=== PATIENT | male | born 1965 | race Caucasian/White ===

== ENCOUNTER 2019-03-02 16:07 | Emergency (ER) | payer BC ==
--- NOTE | 2019-03-02 16:55 | EDM.PDOC ---
ED HPI GENERAL MEDICAL PROBLEM - General Chief Complaint: Cardiovascular Problem Stated Complaint: HEADACHE/DIZZINESS Time Seen by Provider: 03/02/19 16:38 Source of Information: Reports: Patient, RN Notes Reviewed - History of Present Illness INITIAL COMMENTS - FREE TEXT/NARRATIVE: 54-year-old male has been brought in by his for evaluation of headach, not feeling well in general, and dental pain. He had onset of headache about 2 days ago, He has hx of chronic dental problems, his L lower molars are broke off at the gum line. He has been having quite severe pain L post jaw for the last 2 days. No fever or chills. His Baldwin is generalized, throbbing. No nausea, vomiting or visual problems. He also gets R leg pain with ambulation, than gets better with rest. No chest pain or difficulty breathing. He has a strong smoking hx. He is diabetic on insulin and metformin. Left Throat Pain Score (Numeric/FACES): 10 - Related Data Allergies Allergy/AdvReac Type Severity Reaction Status Date / Time No Known Allergies Allergy Verified 03/02/19 16:27 Home Meds: Home Meds Clopidogrel [Plavix] 75 mg PO 05/28/18 [History] Insulin. 05/28/18 [History] Statin. 05/28/18 [History] metFORMIN HCl [Metformin HCl] 500 mg PO 05/28/18 [History] Past Medical History Cardiovascular History: Reports: High Cholesterol, Stents Genitourinary History: Reports: Diabetic Nephropathy Endocrine/Metabolic History: Reports: Diabetes, Type I - Past Surgical History Other HEENT Surgeries/Procedures: shots in his eyes ED ROS GENERAL - Review of Systems Review Of Systems: See Below Constitutional: Denies: Fever, Chills, Diaphoresis HEENT: Reports: Dental Pain. Denies: Ear Pain, Eye Pain, Throat Pain, Vertigo, Vision Change Respiratory: Denies: Shortness of Breath, Cough Cardiovascular: Denies: Chest Pain GI/Abdominal: Denies: Abdominal Pain, Nausea, Vomiting Musculoskeletal: Reports: Leg Pain (with exertion) Skin: Denies: Rash, Erythema Neurological: Reports: Dizziness, Headache. Denies: Numbness, Tingling, Trouble Speaking, Weakness ED EXAM, GENERAL - Physical Exam Exam: See Below General Appearance: Alert, Anxious, Mild Distress Eye Exam: Bilateral Eye: PERRL Ears: Normal External Exam Nose: Normal Inspection Throat/Mouth: Other (most of his teeth are gone, L lower molars are all broken off at the gum line, no visible swelling, no drainage) Head: Facial Tenderness (L post jaw). No: Facial Swelling Neck: Supple, Full Range of Motion, Other (no swelling). No: Lymphadenopathy (L ), Lymphadenopathy (R) Cardiovascular: Regular Rate, Rhythm GI/Abdominal: Soft, Non-Tender Extremities: Normal Inspection, Normal Range of Motion. No: Pedal Edema, Leg Pain, Increased Warmth, Pallor, Redness Neurological: Alert, Oriented, No Motor/Sensory Deficits, Other (finger to nose testing normal) Skin Exam: Warm, Dry, Normal Color EKG INTERPRETATION EKG Date: 03/02/19 Rhythm: NSR [place]: Normal P-Wave: Present QRS: Other (There are Q waves leads III) ST-T: Normal Course - Vital Signs Last Recorded V/S: Last Vital Signs Temp 97.0 F 03/02/19 16:24 Pulse 85 03/02/19 16:24 Resp 18 03/02/19 16:24 BP 222/95 H 03/02/19 16:24 Pulse Ox 92 L 03/02/19 16:24 - Orders/Labs/Meds Orders: Active Orders 24 hr Category Date Time Status EKG 12 Lead [EKG Documentation Completion] [RC] STAT Care 03/02/19 16:56 Active Peripheral IV Care [RC] . DIRECTED Care 03/02/19 16:57 Active Peripheral IV Insertion Adult [OM.PC] Stat Oth 03/02/19 16:56 Ordered Labs: Laboratory Tests 03/02/19 03/02/19 Range/Units 16:43 17:02 WBC 13.15 H (4.23-9.07) K/mm3 RBC 5.38 (4.63-6.08) M/mm3 Hgb 16.2 D (13.7-17.5) gm/dl Hct 46.8 (40.1-51.0) % MCV 87.0 (79.0-92.2) fl MCH 30.1 (25.7-32.2) pg MCHC 34.6 (32.2-35.5) g/dl RDW Std Deviation 40.9 (35.1-43.9) fL Plt Count 275 (163-337) K/mm3 MPV 9.6 (9.4-12.3) fl Neut % (Auto) 66.3 (34.0-67.9) % Lymph % (Auto) 19.6 L (21.8-53.1) % [place] % (Auto) 11.1 (5.3-12.2) % Eos % (Auto) 2.4 (0.8-7.0) Baso % (Auto) 0.3 (0.1-1.2) % Neut # (Auto) 8.72 H (1.78-5.38) K/mm3 Lymph # (Auto) 2.58 (1.32-3.57) K/mm3 [place] # (Auto) 1.46 H (0.30-0.82) K/mm3 Eos # (Auto) 0.31 (0.04-0.54) K/mm3 Baso # (Auto) 0.04 (0.01-0.08) K/mm3 Sodium 137 (136-145) mEq/L Potassium 4.1 (3.5-5.1) mEq/L Chloride 103 (98-107) mEq/L Carbon Dioxide 22 (21-32) mEq/L Anion Gap 16.1 H (5-15) BUN 26 H (7-18) mg/dL Creatinine 1.2 (0.7-1.3) mg/dL Est Cr Clr Drug Dosing 53.72 mL/min Estimated GFR (MDRD) > 60 (>60) mL/min BUN/Creatinine Ratio 21.7 H (14-18) Glucose 243 H (74-106) mg/dL Calcium 9.5 (8.5-10.1) mg/dL Total Bilirubin 0.3 (0.2-1.0) mg/dL AST 16 (15-37) U/L ALT 31 (16-63) U/L Alkaline Phosphatase 101 (46-116) U/L Troponin I < 0.017 (0.00-0.056) ng/mL Total Protein 7.9 (6.4-8.2) g/dl Albumin 4.2 (3.4-5.0) g/dl Globulin 3.7 gm/dL Albumin/Globulin Ratio 1.1 (1-2) Ethyl Alcohol 0.00 (0.00) gm% Meds: Medications Discontinued Medications Generic Name Dose Route Start Last Admin Trade Name Philippeq PRN Reason Stop Dose Admin Amoxicillin 1,000 mg 03/02/19 19:30 03/02/19 19:44 Amoxil PO 03/02/19 19:31 1,000 mg ONETIME ONE Administration Hydromorphone HCl 0.25 mg 03/02/19 16:58 03/02/19 17:11 Dilaudid IVPUSH 03/02/19 16:59 0.25 mg ONETIME ONE Administration Hydromorphone HCl 0.5 mg 03/02/19 18:35 03/02/19 18:39 Dilaudid IVPUSH 03/02/19 18:36 0.5 mg ONETIME ONE Administration Labetalol HCl 20 mg 03/02/19 16:57 03/02/19 17:11 Normodyne IVPUSH 03/02/19 16:58 20 mg ONETIME ONE Administration Protocol Labetalol HCl 20 mg 03/02/19 18:35 03/02/19 18:39 Normodyne IVPUSH 03/02/19 18:36 20 mg ONETIME ONE Administration Protocol Lorazepam 0.25 mg 03/02/19 16:58 03/02/19 17:11 Ativan IVPUSH 03/02/19 16:59 0.25 mg ONETIME ONE Administration Sodium Chloride 10 ml 03/02/19 16:56 03/02/19 17:02 Saline Flush FLUSH 10 ml ASDIRECTED PRN Administration Keep Vein Open - Re-Assessments/Exams Free Text/Narrative Re-Assessment/Exam: 03/03/19 11:15 BP very elevated on arrival, and follow up reading as well. Did give labetalol 20 mg IV, and also low dose dilaudid and ativan IV. That did bring the BP down to less than 200 systolic and he did get some relief of his Baldwin, also better relaxation. Head CT was neg for any acute findings. Labs also did come back relatively normal, creat. 1.2, trop nl. EKG also no acute changes. We did give further dilaudid IV for dental pain and Baldwin and one further dose labetalol IV. I did offer to start him on oral med. for Htn. He and his want to wait. His states he has never had high BP like this before. They agree to get a BP unit from a family member, get 2 or 3 readings per day at home and follow up clinic urgently. He was given amoxacillin 1000 mg IV. I have scheduled him for out patient MRI of head, MRA of head and neck for further eval. of neuro status. He will return to ED if symptoms worsening in any way. Departure - Departure Time of Disposition: 19:38 Disposition: Home, Self-Care 01 Condition: Fair Clinical Impression: Pain, dental, Dizziness Headache Qualifiers: Headache type: unspecified Headache chronicity pattern: acute headache Intractability: not intractable Qualified Code(s): R51 - Headache Hypertension Qualifiers: Hypertension type: unspecified Qualified Code(s): I10 - Essential (primary) hypertension Instructions: General Headache Without Cause, Hypertension, [id number] Referrals: Graciela Cortez MD [Primary Care Provider] - Forms: ED Department Discharge Additional Instructions: Rest, drink plenty of water to maintain hydration, borrow your family's blood pressure cuff and check blood pressure 2-3 times daily, keep a record for Dr. Cortez. Order for MRI of your head and MRA of your neck has been sent to radiology. They will call you tomorrow morning to give you a time for that. Amoxicillin 1000 mg twice daily for 1 week. See dentist as soon as possible. Follow up with Dr. Cortez at the clinic in 1-2 days for recheck, call for appointment tomorrow morning. Return to ED as needed if symptoms worsening in any way. - My Orders Last 24 Hours: My Active Orders 03/02/19 16:56 EKG 12 Lead [EKG Documentation Completion] [RC] STAT Peripheral IV Insertion Adult [OM.PC] Stat 03/02/19 16:57 Peripheral IV Care [RC] . DIRECTED - Assessment/Plan Last 24 Hours: My Active Orders 03/02/19 16:56 EKG 12 Lead [EKG Documentation Completion] [RC] STAT Peripheral IV Insertion Adult [OM.PC] Stat 03/02/19 16:57 Peripheral IV Care [RC] . DIRECTED
[2019-03-02] MEDS ORDERED: Sodium Chloride 0.9% 10 ML Syringe FLUSH PRN (16:56)
[2019-03-02] MEDS ORDERED: Labetalol 100 MG/20 ML MDV IVPUSH ONE ×2 (16:57→18:35)
[2019-03-02] MEDS ORDERED: LORazepam 2 MG/ML SDV IVPUSH ONE (16:58)
[2019-03-02] MEDS ORDERED: HYDROmorphone 0.5 MG/0.5 ML Syringe IVPUSH ONE ×2 (16:58→18:35)
--- NOTE | 2019-03-02 18:03 | CT ---
Head CT Technique: Multiple axial sections through the brain were obtained. Intravenous contrast was not utilized. Comparison: No previous intracranial imaging is available. Findings: Ventricles along with basal cisterns and sulci over the convexities are slightly prominent. No abnormal parenchymal densities are seen. No evidence of intracranial hemorrhage. No midline shift or mass effect is seen. Bone window settings were reviewed which shows no acute calvarial abnormality. Visualized paranasal sinuses and mastoid sinuses are clear. Impression: 1. Nothing acute is identified on noncontrast head CT study. Please correlate if patient's symptoms warrant further evaluation by MRI. Diagnostic code #1
[2019-03-02] MEDS ORDERED: Amoxicillin 500 MG Cap PO ONE (19:30)
== END 2019-03-02 20:00 | disposition home or self-care (01) ==
LOC: JD.ED 16:07
DX: R51 Headache (principal); K08.89 Other specified disorders of teeth and supporting structures; R42 Dizziness and giddiness; I10 Essential (primary) hypertension; E10.21 Type 1 diabetes mellitus with diabetic nephropathy; Z79.4 Long term (current) use of insulin
CPT/HCPCS: 36415; 70450; 80053; 80320; 84484; 85025; 93005; 96374; 96375; 96376; 99284; A9270; J1170; J2060; J3490; G0480

== ENCOUNTER 2019-03-04 17:05 | Emergency (ER) | payer BC ==
--- NOTE | 2019-03-04 17:50 | EDM.PDOC ---
ED HPI GENERAL MEDICAL PROBLEM - General Chief Complaint: Cardiovascular Problem Stated Complaint: SENT BY [facility] BLOOD CLOT IN LUNG Time Seen by Provider: 03/04/19 17:22 Source of Information: Reports: Patient, Family () History Limitations: Reports: No Limitations - History of Present Illness INITIAL COMMENTS - FREE TEXT/NARRATIVE: Mr. Kitchen is a very pleasant 54-year-old gentleman with a past history significant for type 2 diabetes mellitus, with peripheral vascular disease, status post a single stent to one of the arteries in his right lower extremity in 2018. He states that he has continued to have right lower extremity claudication symptoms for most of this year, and also reports 2 days of dyspnea on exertion. He states that he saw his PCP earlier today. A CBC, CMP, D-dimer, hemoglobin A1c, lipid panel, urinalysis, and chest x-ray were performed. The patient was subsequently instructed to come here, because his D-dimer was found to be mildly elevated at 0.52 (the upper limit of normal is 0.50). The remainder of his labs and his chest x-ray were reportedly unremarkable, with the exception that his blood glucose was 361, and his hemoglobin A1c 10%. The patient states that he was instructed to come here to get a CT angiogram of his chest to rule out a PE, given his elevated D-dimer. The patient's PCP is Dr. Graciela Cortez. His Share[employer] Developer is in [place], [place]. - Related Data Allergies Allergy/AdvReac Type Severity Reaction Status Date / Time No Known Allergies Allergy Verified 03/02/19 16:27 Home Meds: Home Meds Aspirin [Children's Aspirin] 81 mg PO DAILY 03/04/19 [History] Dapagliflozin Propanediol [Farxiga] 5 mg PO DAILY 03/04/19 [History] Diclofenac Sodium [Voltaren] 75 mg PO BID 03/04/19 [History] Insulin Glarg,Human.Rec.Analog [Lantus] 24 unit INJECT BID 03/04/19 [History] Rosuvastatin [Crestor] 10 mg PO DAILY 03/04/19 [History] metFORMIN [Glucophage XR] 500 mg PO DAILY 03/04/19 [History] Past Medical History HEENT History: Reports: Impaired Vision (Diabetic retinopathy) Cardiovascular History: Reports: High Cholesterol, PVD Neurological History: Reports: Neuropathy, Diabetic Endocrine/Metabolic History: Reports: Diabetes, Type II - Past Surgical History HEENT Surgical History: Reports: Tonsillectomy Cardiovascular Surgical History: Reports: Vascular Surgery (1 stent RLE 2018, [facility]) Musculoskeletal Surgical History: Reports: ORIF (left tibia), Other (See Below) (Left forearm bone spur removal) Social & Family History - Tobacco Use Smoking Status *Q: Former Smoker Years of Tobacco use: 35 Packs/Tins Daily: 1.5 Month/Year Tobacco Last Used: Quit 2014 - Caffeine Use Caffeine Use: Reports: Soda - Alcohol Use Alcohol Use History: Yes Alcohol Use Frequency: Rarely - Recreational Drug Use Recreational Drug Use: No - Living Situation & Occupation Living situation: Reports: , with Spouse 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 ED EXAM, GENERAL - Physical Exam Exam: See Below Exam Limited By: No Limitations General Appearance: Alert, WD/WN, Anxious Eye Exam: Bilateral Eye: EOMI, Normal Inspection Ears: Normal External Exam, Hearing Grossly Normal Nose: Normal Inspection Throat/Mouth: Normal Inspection, Normal Lips, Normal Voice, No Airway Compromise Head: Atraumatic, Normocephalic Neck: Normal Inspection, Full Range of Motion Respiratory/Chest: No Respiratory Distress, Lungs Clear, Normal Breath Sounds, No Accessory Muscle Use. No: Decreased Breath Sounds, Crackles, Rhonchi, Wheezing, Stridor, Prolonged Expiration Cardiovascular: Normal Peripheral Pulses, Regular Rate, Rhythm, No Gallop, No JVD, No Murmur, No Rub Peripheral Pulses: 4+: Radial (L), Radial (R) GI/Abdominal: Normal Bowel Sounds, Soft, Non-Tender, No Organomegaly, No Distention, No Abnormal Bruit, No Mass (Male) Exam: Deferred Rectal (Males) Exam: Deferred Back Exam: Normal Inspection, Full Range of Motion, NT Extremities: Normal Inspection, Normal Range of Motion, No Pedal Edema, Normal Capillary Refill Neurological: Alert, Oriented, Normal Cognition, No Motor/Sensory Deficits Psychiatric: Normal Affect Skin Exam: Warm, Dry, Intact, Normal Color, No Rash Course - Vital Signs Last Recorded V/S: Last Vital Signs Temp 36.6 C 03/04/19 17:12 Pulse 74 03/04/19 17:12 Resp 24 H 09/18/19 17:12 BP 177/95 H 03/04/19 17:12 Pulse Ox 100 03/04/19 17:12 - Orders/Labs/Meds Labs: Laboratory Tests 03/04/19 Range/Units 18:20 Puncture Site Rt radial ABG pH 7.45 (7.35-7.45) ABG pCO2 32.4 L (35.0-45.0) mmHg ABG pO2 57.0 L (80.0-100.0) mmHg ABG HCO3 22.1 (22.0-26.0) meq/L ABG O2 Saturation 90.1 L (96.0-97.0) % ABG Base Excess -0.6 (-2-2.0) Narendra Test Positive A-a Gradient 53 mmHg O2 Delivery Device Room air FiO2 21.00 (21.00-100.00) % - Re-Assessments/Exams Free Text/Narrative Re-Assessment/Exam: 03/04/19 17:47 As per the HPI, the patient has been experiencing dyspnea on exertion for the past 2 days. He workup by his PCP thus far is unremarkable, with the exception of his D-dimer being slightly elevated at 0.52, which is not consistent with a PE. We note that his oxygen saturation here in the ED is 100%, suggestive of hyperventilation. I have ordered an ABG to see if in fact he is hyperventilating , and when I have that result, I will call his PCP to see how strongly she feels about us acquiring a CT angiogram of his chest. 03/04/19 18:35 The patient's ABG represents an acute (uncompensated) primary respiratory alkalosis. The extent may be greater than represented, as this may be a mixed venous sample, given the underrepresented oxygen saturation. 03/04/19 18:[address] Cortez at 18:44. She stated that she was unaware that a D-dimer of 0.52 would not be consistent with a pulmonary embolus. We discussed the possibility of the patient having underlying DKA, however, his ABG represents a pure respiratory alkalosis with no metabolic acidosis. Further , his CMP from the clinic did not show metabolic acidosis, therefore the patient is not in DKA. Once discussed, Dr. Cortez did not feel strongly that the patient required a CT angiogram of the chest to rule out a PE. We discussed the possibility that the patient's dyspnea and hyperventilation could be due to anxiety. 03/04/19 19:03 The ABG results, and my conversation with Dr. Cortez, discussed with the patient and his . The patient feels frustrated, because, he states, this is his third ED visit, and he does not feel like he has an answer to why he continues to have a variety of symptoms. He states that he is not angry at anyone, just frustrated. He is concerned that his symptoms may somehow be related to his right lower extremity claudication, and he is certain that he may have COPD, since he has a history of smoking. I reassured him that his right lower extremity claudication is likely completely unrelated to his dyspnea on exertion, and while I cannot say whether or not he has underlying COPD, neither his symptoms, physical exam, nor his ABG are consistent with a COPD exacerbation. While a pulmonary embolus is highly unlikely, there may be utility in performing a CT of the chest with IV contrast (not a CT angiogram of the chest) to assess his anatomy. I offered to perform that here today, but the patient would prefer to go home. That study is still possible as an outpatient. I will have the patient follow-up with Dr. Cortez. Departure - Departure Time of Disposition: 19:08 Disposition: Home, Self-Care 01 Condition: Good Clinical Impression: Hyperventilation, Dyspnea on exertion, Claudication of right lower extremity Instructions: Shortness of Breath, Adult, [id number], Intermittent Claudication, Hyperventilation Referrals: Graciela Cortez MD [Primary Care Provider] - Forms: ED Department Discharge Additional Instructions: You were seen in the emergency room after a D-dimer (a potential measure of blood clot), obtained from the clinic, returned mildly elevated at 0.52. This is not consistent with a pulmonary embolus (blood clot in your lungs). Workup in the ER included an ABG, which demonstrated that you are hyperventilating. Hyperventilation is usually due to anxiety. Your case was discussed with your PCP, Dr. Cortez, and after discussion, she agreed that a CT angiogram of your chest to evaluate for a pulmonary embolus is not indicated. The exact cause of your shortness of breath is not clear, but may be due to anxiety, or, possibly an anatomic abnormality. We recommend that you follow-up with Dr. Cortez to discuss further options, such as treatment for anxiety, pulmonary function tests, or, potentially, a CT of your chest with IV contrast, a slightly different test than a CT angiogram of your chest. If any other problems, please do not hesitate to return to the ER.
== END 2019-03-04 19:25 | disposition home or self-care (01) ==
LOC: JD.ED 17:05
DX: I73.9 Peripheral vascular disease, unspecified (principal); R06.4 Hyperventilation; E11.40 Type 2 diabetes mellitus with diabetic neuropathy, unspecified; Z79.4 Long term (current) use of insulin; Z79.82 Long term (current) use of aspirin; Z79.899 Other long term (current) drug therapy; Z98.890 Other specified postprocedural states; Z95.5 Presence of coronary angioplasty implant and graft; Z87.891 Personal history of nicotine dependence
CPT/HCPCS: 36600; 82803; 99283; 99284

== ENCOUNTER 2020-10-08 12:13 | Emergency (ER) | payer BC ==
--- NOTE | 2020-10-08 13:23 | EDM.PDOC ---
ED HPI GENERAL MEDICAL PROBLEM - General Chief Complaint: Respiratory Problem Stated Complaint: COVID SYMPTOMS Time Seen by Provider: 10/08/20 12:30 Source of Information: Reports: Patient History Limitations: Reports: No Limitations - History of Present Illness INITIAL COMMENTS - FREE TEXT/NARRATIVE: 55-year-old male presents to the emergency department with complaints of Covid symptoms. He states he developed upper respiratory symptoms with a headache and sinus congestion about 10 days ago. However he states after about 4 days his symptoms all resolved. He states that yesterday both him and his developed upper respiratory symptoms, cough, chest congestion, headache and body aches. He denies any loss of taste or smell, he denies any nausea, vomiting, diarrhea or loss of appetite. Denies any sore throat. However he states that today his chest congestion has worsened and he feels more dyspneic and has developed more persistent cough that is nonproductive. Denies fever. He reports to me his was seen in the emergency department yesterday and diagnosed with Covid and was admitted to the hospital. He carries a history of bypass x2 with stent placement and he is an insulin-dependent diabetic. Treatments BUTCHER FISH: Reports: Other (see below) Other Treatments BUTCHER FISH: tylenol Headache Pain Score (Numeric/FACES): 6 - Related Data Allergies Allergy/AdvReac Type Severity Reaction Status Date / Time No Known Allergies Allergy Verified 04/29/19 16:48 Home Meds: Home Meds Dapagliflozin Propanediol [Farxiga] 5 mg PO DAILY 03/04/19 [History] Insulin Glarg,Human.Rec.Analog [Lantus] 24 unit INJECT BID 03/04/19 [History] Rosuvastatin [Crestor] 10 mg PO DAILY 03/04/19 [History] metFORMIN [Glucophage XR] 500 mg PO DAILY 03/04/19 [History] Multivitamin [Daily Multiple Vitamin] 1 tab PO DAILY 04/29/19 [History] Pantoprazole Sodium [Protonix] 40 mg PO DAILY #30 tablet. 04/30/19 [Rx] Past Medical History HEENT History: Reports: Impaired Vision Other HEENT History: wears eyeglasses. Top teeth pulled out. Cardiovascular History: Reports: High Cholesterol, PVD Other Cardiovascular History: stent to right leg Respiratory History: Reports: Pneumonia, Recurrent Genitourinary History: Reports: Diabetic Nephropathy Musculoskeletal History: Reports: Fracture Neurological History: Reports: Neuropathy, Diabetic Endocrine/Metabolic History: Reports: Diabetes, Type II - Infectious Disease History Infectious Disease History: Reports: Chicken Pox - Past Surgical History HEENT Surgical History: Reports: Tonsillectomy Other HEENT Surgeries/Procedures: shots in his eyes Cardiovascular Surgical History: Reports: Vascular Surgery Musculoskeletal Surgical History: Reports: ORIF, Other (See Below) Other Musculoskeletal Surgeries/Procedures:: jonatan to L) leg (femur) Social & Family History - Family History Family Medical History: No Pertinent Family History - Tobacco Use Tobacco Use Status *Q: Never Tobacco User - Caffeine Use Caffeine Use: Reports: Soda - Recreational Drug Use Recreational Drug Use: No - Living Situation & Occupation Living situation: Reports: , with Spouse 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 Denies: Diaphoresis, Decreased Appetite HEENT: Reports: No Symptoms. Denies: Sinus Problem, Throat Pain Respiratory: Reports: Shortness of Breath, Cough. Denies: Sputum Cardiovascular: Reports: Dyspnea on Exertion. Denies: Chest Pain, Edema, Lightheadedness, Orthopnea, Palpitations Endocrine: Reports: No Symptoms GI/Abdominal: Reports: No Symptoms. Denies: Abdominal Pain, Constipation, Diarrhea, Nausea, Vomiting : Reports: No Symptoms Musculoskeletal: Reports: Other (generalized body aches) Skin: Reports: No Symptoms Neurological: Reports: Headache Psychiatric: Reports: No Symptoms Hematologic/Lymphatic: Reports: No Symptoms Immunologic: Reports: No Symptoms ED EXAM, GENERAL - Physical Exam Exam: See Below Exam Limited By: No Limitations General Appearance: Alert, WD/WN, No Apparent Distress Ears: Normal External Exam, Hearing Grossly Normal Nose: Normal Inspection Throat/Mouth: Normal Inspection, Normal Lips, Normal Voice, No Airway Compromise Head: Atraumatic, Normocephalic Neck: Normal Inspection, Supple Respiratory/Chest: No Respiratory Distress, Normal Breath Sounds, No Accessory Muscle Use, Chest Non-Tender. No: Lungs Clear (faint exp wheeze noted posteriorly) Cardiovascular: Normal Peripheral Pulses, Regular Rate, Rhythm, No Edema, No Murmur Peripheral Pulses: 2+: Radial (L), Radial (R) GI/Abdominal: Normal Bowel Sounds, Soft, Non-Tender, No Distention (Male) Exam: Deferred Rectal (Males) Exam: Deferred Back Exam: Normal Inspection, Full Range of Motion Extremities: Normal Inspection, Normal Range of Motion, Non-Tender, No Pedal Edema, Normal Capillary Refill Neurological: Alert, Oriented, Normal Cognition Psychiatric: Normal Affect, Normal Mood Skin Exam: Warm, Dry, Intact, Normal Color, No Rash Lymphatic: No Adenopathy #1 Interpretation EKG Date: 10/08/20 Time: 13:23 Rhythm: NSR Rate (Beats/Min): 78 [place]: Normal P-Wave: Present QRS: Normal ST-T: Normal QT: Normal EKG Interpretation Comments: Per Dr. Waldrop interpretation: normal sinus rhythm-normal QRS; no ST or T changes Course - Vital Signs Text/Narrative:: 55-year-old male whose developed upper respiratory symptoms and headache and body aches chest congestion and cough starting yesterday. He states his was seen and treated in the emergency department for Covid symptoms and what is admitted. He states he has noticed more progressive shortness of breath and a more persistent cough since yesterday when his symptoms started. He states he still does have his taste and smell and denies any nausea, vomiting, diarrhea. States he has had the chills and a headache denies any sore throat. It is highly likely that the patient also does have Covid however I have ordered labs and a chest x-ray. He may likely be a candidate for on a clonal antibody treatment due to his history of insulin-dependent diabetes and past cardiac stenting. Last Recorded V/S: Last Vital Signs Temp 101.3 F H 10/08/20 16:14 Pulse 86 10/08/20 16:14 Resp 16 10/08/20 16:14 BP 182/83 H 10/08/20 16:14 Pulse Ox 94 L 10/08/20 16:14 - Orders/Labs/Meds Orders: Active Orders 24 hr Category Date Time Status EKG Documentation Completion [RC] STAT Care 10/08/20 13:10 Active Vital Signs [RC] Q15M Care 10/08/20 14:20 Active EPINEPHrine [Adrenalin] Med 10/08/20 14:19 Active 0.3 mg IM ONETIME PRN Famotidine [Pepcid] Med 10/08/20 14:19 Active 20 mg IVPUSH ONETIME PRN Sodium Chloride 0.9% [Saline Flush] Med 10/08/20 14:30 Active 30 ml FLUSH ASDIRECTED diphenhydrAMINE [Benadryl] Med 10/08/20 14:19 Active 50 mg IVPUSH ONETIME PRN methylPREDNISolone Sod Succ [Solu-MEDROL] Med 10/08/20 14:19 Active 125 mg IVPUSH ONETIME PRN Isolation [COMM] Stat Oth 10/08/20 13:05 Ordered Medication Orders Diphenhydramine HCl (Diphenhydramine 50 Mg/Ml Sdv) 50 mg IVPUSH ONETIME PRN PRN Reason: hypersensitivity reaction Epinephrine HCl (Epinephrine 1 Mg/Ml Sdv) 0.3 mg IM ONETIME PRN PRN Reason: hypersensitivity reaction Famotidine (Famotidine 20 Mg/2 Ml Sdv) 20 mg IVPUSH ONETIME PRN PRN Reason: hypersensitivity reaction Methylprednisolone Sodium Succinate (Methylprednisolone Sodium Succinate 125 Mg/2 Ml Sdv) 125 mg IVPUSH ONETIME PRN PRN Reason: hypersensitivity reaction Sodium Chloride (Sodium Chloride 0.9% 10 Ml Syringe) 30 ml FLUSH ASDIRECTED [facility] Labs: Laboratory Tests 10/08/20 10/08/20 10/08/20 Range/Units 13:10 13:10 13:10 WBC (4.23-9.07) K/mm3 RBC (4.63-6.08) M/mm3 Hgb (13.7-17.5) gm/dl Hct (40.1-51.0) % MCV (79.0-92.2) fl MCH (25.7-32.2) pg MCHC (32.2-35.5) g/dl RDW Std Deviation (35.1-43.9) fL Plt Count (163-337) K/mm3 MPV (9.4-12.3) fl Neut % (Auto) (34.0-67.9) % Lymph % (Auto) (21.8-53.1) % [place] % (Auto) (5.3-12.2) % Eos % (Auto) (0.8-7.0) Baso % (Auto) (0.1-1.2) % Neut # (Auto) (1.78-5.38) K/mm3 Lymph # (Auto) (1.32-3.57) K/mm3 [place] # (Auto) (0.30-0.82) K/mm3 Eos # (Auto) (0.04-0.54) K/mm3 Baso # (Auto) (0.01-0.08) K/mm3 Manual Slide Review PT (9.7-12.0) SECONDS INR APTT 25.7 (21.7-31.4) SECONDS D-Dimer, Quantitative 0.28 (0.19-0.50) mg/L Sodium (136-145) mEq/L Potassium (3.5-5.1) mEq/L Chloride (98-107) mEq/L Carbon Dioxide (21-32) mEq/L Anion Gap (5-15) BUN (7-18) mg/dL Creatinine (0.7-1.3) mg/dL Est Cr Clr Drug Dosing mL/min Estimated GFR (MDRD) (>60) mL/min BUN/Creatinine Ratio (14-18) Glucose (74-106) mg/dL Lactic Acid (0.4-2.0) mmol/L Calcium (8.5-10.1) mg/dL Ferritin 600 H (26-388) ng/ml Total Bilirubin (0.2-1.0) mg/dL AST (15-37) U/L ALT (16-63) U/L Alkaline Phosphatase (46-116) U/L Lactate Dehydrogenase (85-227) U/L C-Reactive Protein (<1.0) mg/dL Total Protein (6.4-8.2) g/dl Albumin (3.4-5.0) g/dl Globulin gm/dL Albumin/Globulin Ratio (1-2) Influenza Type A RNA (NEGATIVE) Influenza Type B RNA (NEGATIVE) SARS-CoV-2 RNA (ANTOINE) (NEGATIVE) 10/08/20 10/08/20 10/08/20 Range/Units 13:10 13:10 13:10 WBC (4.23-9.07) K/mm3 RBC (4.63-6.08) M/mm3 Hgb (13.7-17.5) gm/dl Hct (40.1-51.0) % MCV (79.0-92.2) fl MCH (25.7-32.2) pg MCHC (32.2-35.5) g/dl RDW Std Deviation (35.1-43.9) fL Plt Count (163-337) K/mm3 MPV (9.4-12.3) fl Neut % (Auto) (34.0-67.9) % Lymph % (Auto) (21.8-53.1) % [place] % (Auto) (5.3-12.2) % Eos % (Auto) (0.8-7.0) Baso % (Auto) (0.1-1.2) % Neut # (Auto) (1.78-5.38) K/mm3 Lymph # (Auto) (1.32-3.57) K/mm3 [place] # (Auto) (0.30-0.82) K/mm3 Eos # (Auto) (0.04-0.54) K/mm3 Baso # (Auto) (0.01-0.08) K/mm3 Manual Slide Review PT (9.7-12.0) SECONDS INR APTT (21.7-31.4) SECONDS D-Dimer, Quantitative (0.19-0.50) mg/L Sodium 136 (136-145) mEq/L Potassium 4.3 (3.5-5.1) mEq/L Chloride 99 (98-107) mEq/L Carbon Dioxide 28 (21-32) mEq/L Anion Gap 13.3 (5-15) BUN 14 (7-18) mg/dL Creatinine 1.1 (0.7-1.3) mg/dL Est Cr Clr Drug Dosing 57.91 mL/min Estimated GFR (MDRD) > 60 (>60) mL/min BUN/Creatinine Ratio 12.7 L (14-18) Glucose 345 H (74-106) mg/dL Lactic Acid 1.2 (0.4-2.0) mmol/L Calcium 9.2 (8.5-10.1) mg/dL Ferritin (26-388) ng/ml Total Bilirubin 0.4 (0.2-1.0) mg/dL AST 25 (15-37) U/L ALT 41 (16-63) U/L Alkaline Phosphatase 97 (46-116) U/L Lactate Dehydrogenase 162 (85-227) U/L C-Reactive Protein <0.2 (<1.0) mg/dL Total Protein 7.0 (6.4-8.2) g/dl Albumin 3.5 (3.4-5.0) g/dl Globulin 3.5 gm/dL Albumin/Globulin Ratio 1.0 (1-2) Influenza Type A RNA (NEGATIVE) Influenza Type B RNA (NEGATIVE) SARS-CoV-2 RNA (ANTOINE) (NEGATIVE) 10/08/20 10/08/20 10/08/20 Range/Units 13:10 13:10 13:10 WBC 5.11 (4.23-9.07) K/mm3 RBC 4.94 (4.63-6.08) M/mm3 Hgb 15.0 D (13.7-17.5) gm/dl Hct 44.5 (40.1-51.0) % MCV 90.1 (79.0-92.2) fl MCH 30.4 (25.7-32.2) pg MCHC 33.7 (32.2-35.5) g/dl RDW Std Deviation 41.1 (35.1-43.9) fL Plt Count 185 (163-337) K/mm3 MPV 10.0 (9.4-12.3) fl Neut % (Auto) 52.0 (34.0-67.9) % Lymph % (Auto) 25.2 (21.8-53.1) % [place] % (Auto) 20.4 H (5.3-12.2) % Eos % (Auto) 1.6 (0.8-7.0) Baso % (Auto) 0.6 (0.1-1.2) % Neut # (Auto) 2.66 (1.78-5.38) K/mm3 Lymph # (Auto) 1.29 L (1.32-3.57) K/mm3 [place] # (Auto) 1.04 H (0.30-0.82) K/mm3 Eos # (Auto) 0.08 (0.04-0.54) K/mm3 Baso # (Auto) 0.03 (0.01-0.08) K/mm3 Manual Slide Review Abnormal smear PT 10.2 (9.7-12.0) SECONDS INR 0.95 APTT (21.7-31.4) SECONDS D-Dimer, Quantitative (0.19-0.50) mg/L Sodium (136-145) mEq/L Potassium (3.5-5.1) mEq/L Chloride (98-107) mEq/L Carbon Dioxide (21-32) mEq/L Anion Gap (5-15) BUN (7-18) mg/dL Creatinine (0.7-1.3) mg/dL Est Cr Clr Drug Dosing mL/min Estimated GFR (MDRD) (>60) mL/min BUN/Creatinine Ratio (14-18) Glucose (74-106) mg/dL Lactic Acid (0.4-2.0) mmol/L Calcium (8.5-10.1) mg/dL Ferritin (26-388) ng/ml Total Bilirubin (0.2-1.0) mg/dL AST (15-37) U/L ALT (16-63) U/L Alkaline Phosphatase (46-116) U/L Lactate Dehydrogenase (85-227) U/L C-Reactive Protein (<1.0) mg/dL Total Protein (6.4-8.2) g/dl Albumin (3.4-5.0) g/dl Globulin gm/dL Albumin/Globulin Ratio (1-2) Influenza Type A RNA Negative (NEGATIVE) Influenza Type B RNA Negative (NEGATIVE) SARS-CoV-2 RNA (ANTOINE) Positive H (NEGATIVE) Meds: Medications Generic Name Dose Route Start Last Admin Trade Name Freq PRN Reason Stop Dose Admin Diphenhydramine HCl 50 mg 10/08/20 14:19 Diphenhydramine 50 Mg/Ml Sdv IVPUSH ONETIME PRN hypersensitivity reaction Epinephrine HCl 0.3 mg 10/08/20 14:19 Epinephrine 1 Mg/Ml Sdv IM ONETIME PRN hypersensitivity reaction Famotidine 20 mg 10/08/20 14:19 Famotidine 20 Mg/2 Ml Sdv IVPUSH ONETIME PRN hypersensitivity reaction Methylprednisolone Sodium Succinate 125 mg 10/08/20 14:19 Methylprednisolone Sodium Succinate 125 Mg/2 Ml Sdv IVPUSH ONETIME PRN hypersensitivity reaction Sodium Chloride 30 ml 10/08/20 14:30 Sodium Chloride 0.9% 10 Ml Syringe FLUSH ASDIRECTED ANTWON Discontinued Medications Generic Name Dose Route Start Last Admin Trade Name Freq PRN Reason Stop Dose Admin Bamlanivimab 700 mg/ 310 mls @ 310 mls/hr 10/08/20 16:30 10/08/20 16:11 Etesevimab 1,400 mg/ Sodium IV 10/08/20 17:29 310 mls/hr Chloride ONETIME ONE Administration Insulin Human Lispro 4 unit 10/08/20 14:32 10/08/20 15:14 Insulin Lispro 100 Unit/Ml SUBCUT 10/08/20 14:33 4 unit ONETIME ONE Administration Protocol - Re-Assessments/Exams Free Text/Narrative Re-Assessment/Exam: 10/08/20 14:18 Radiologist impression portable view of the chest: 1. Nothing acute is seen on portable chest x-ray. 10/08/20 14:29 Hematology reveals a WBC of 5.11, hemoglobin 15.0, hematocrit 44.5, pro time 10.2, INR 0.95, PTT 25.7, D-dimer 0.28, chemistry reveals a sodium of 136, potassium of 4.3, carbon dioxide 28, anion gap 13.3, BUN 14, creatinine 1.1, GFR greater than 60, glucose 345, lactic acid 1.2, ferritin 600, total bilirubin 0.4, AST 25, ALT 41, LDH 162, C-reactive protein less than 0.2 Patient is negative for influenza type a and B, patient is positive for Covid. I discussed lab results with the patient and the fact that he is a candidate for monoclonal antibody treatment. He does carry a history of insulin-dependent diabetes, he is 55 years old and has cardiovascular disease. He states that his blood sugar is likely elevated because he has not taken his insulin for 2 days. We will treat this with Humalog sliding scale insulin and get the patient a lunch tray as he states he has not eaten much today. I spoke with the patient to provide information about bamlanivimab treatment for himself. I offered the patient caregiver MILA Johnsonlanivimad fax sheet to read and review. I stated the drug has been approved by an emergency use authorization process and has not fully been FDA reviewed or approved. The patient meets the EUA requirements. I discussed there are other potential treatment options that are currently not FDA approved to treat Covid. I offered opportunity to ask questions and all questions were answered. The patient voiced understanding and agreed to proceed with the treatment for himself. 10/08/20 18:36 Patient has received Bamlanivimab treatment and tolerated it well. He has been observed for an hour in the emergency department and he will be discharged home. Departure - Departure Time of Disposition: 18:37 Disposition: Home, Self-Care 01 Condition: Good Clinical Impression: COVID-19 - Discharge Information Instructions: What You Should Know About COVID-19 to Protect Yourself and Others - [facility] Referrals: Vinicio Barahona MD [Primary Care Provider] - Forms: ED Department Discharge Additional Instructions: You were seen in the emergency department today with complaints of symptoms of Covid. Labs and an x-ray were completed and you do indeed have Covid however the inflammatory markers were not elevated thus far. You qualified for monoclonal antibody treatment and did receive this. As discussed, if this is effective, it should lessen your symptoms and severity of Covid. Go home and rest. Drink plenty of fluids and eat a nutritious diet. May take Tylenol 650 mg every 4 hours or ibuprofen 600mg every 8 hours for discomfort. You still need to quarantine per previous recommendations. Should your conditions worsen or change, do not hesitate returning to the emergency department. Sepsis Event Note (ED) - Evaluation Sepsis Screening Result: No Definite Risk - Focused Exam Vital Signs: Vital Signs Temp Pulse Resp BP Pulse Ox 10/08/20 16:14 101.3 F H 86 16 182/83 H 94 L 10/08/20 12:40 99.9 F 78 20 162/81 H 97 - My Orders Last 24 Hours: My Active Orders 10/08/20 13:05 Isolation [COMM] Stat 10/08/20 13:10 EKG Documentation Completion [RC] STAT 10/08/20 14:19 EPINEPHrine [Adrenalin] 0.3 mg IM ONETIME PRN Famotidine [Pepcid] 20 mg IVPUSH ONETIME PRN diphenhydrAMINE [Benadryl] 50 mg IVPUSH ONETIME PRN methylPREDNISolone Sod Succ [Solu-MEDROL] 125 mg IVPUSH ONETIME PRN 10/08/20 14:20 Vital Signs [RC] Q15M 10/08/20 14:30 Sodium Chloride 0.9% [Saline Flush] 30 ml FLUSH ASDIRECTED - Assessment/Plan Last 24 Hours: My Active Orders 10/08/20 13:05 Isolation [COMM] Stat 10/08/20 13:10 EKG Documentation Completion [RC] STAT 10/08/20 14:19 EPINEPHrine [Adrenalin] 0.3 mg IM ONETIME PRN Famotidine [Pepcid] 20 mg IVPUSH ONETIME PRN diphenhydrAMINE [Benadryl] 50 mg IVPUSH ONETIME PRN methylPREDNISolone Sod Succ [Solu-MEDROL] 125 mg IVPUSH ONETIME PRN 10/08/20 14:20 Vital Signs [RC] Q15M 10/08/20 14:30 Sodium Chloride 0.9% [Saline Flush] 30 ml FLUSH ASDIRECTED
--- NOTE | 2020-10-08 13:55 | CR ---
Chest: Portable view of the chest was obtained. Comparison: Prior chest x-ray of 05/01/19 and 04/29/19. Heart size and mediastinum are within normal limits for portable technique. Tortuous thoracic aorta is noted. Lungs are clear with no acute parenchymal change. Bony structures show slight scoliosis within the spine. Impression: 1. Nothing acute is seen on portable chest x-ray. Diagnostic code #2
[2020-10-08 14:01] LABS: CORONAVIRUS COVID-19 NAA POSITIVE (NEGATIVE)
[2020-10-08] MEDS ORDERED: EPINEPHrine 1 MG/ML SDV IM PRN (14:19)
[2020-10-08] MEDS ORDERED: diphenhydrAMINE 50 MG/ML SDV IVPUSH PRN (14:19)
[2020-10-08] MEDS ORDERED: methylPREDNISolone Sodium Succinate 125 MG/2 ML SDV IVPUSH PRN (14:19)
[2020-10-08] MEDS ORDERED: Famotidine 20 MG/2 ML SDV IVPUSH PRN (14:19)
[2020-10-08] MEDS ORDERED: Sodium Chloride 0.9% 10 ML Syringe FLUSH SCH (14:30)
== END 2020-10-08 18:57 | disposition home or self-care (01) ==
LOC: JD.ED 12:13
DX: U07.1 COVID-19 (principal); E11.40 Type 2 diabetes mellitus with diabetic neuropathy, unspecified; E78.00 Pure hypercholesterolemia, unspecified; Z79.4 Long term (current) use of insulin; Z79.899 Other long term (current) drug therapy
CPT/HCPCS: 0240U; 36415; 71045; 80053; 82728; 83605; 83615; 85025; 85379; 85610; 85730; 86140; 93005; 99284; J1815; J7050; M0245; Q0239; Q0245; 93010

== ENCOUNTER 2020-10-10 16:05 | Emergency (ER) | payer BC ==
--- NOTE | 2020-10-10 16:18 | EDM.PDOC ---
ED HPI GENERAL MEDICAL PROBLEM - General Chief Complaint: Respiratory Problem Stated Complaint: SOB/COVID+ Time Seen by Provider: 10/10/20 16:17 - History of Present Illness INITIAL COMMENTS - FREE TEXT/NARRATIVE: 55-year-old male returns the emergency room with worsening shortness of breath he is known Covid positive. Patient was seen here 2 days ago diagnosed with Covid because of his diabetes he received Bamlanivimab. The patient has tremendous stress his is in [place] with Covid now on a ventilator. And the patient is quite anxious at this time. The patient has a cough and this seems to make his chest discomfort worse. He has chest discomfort in both lower portions of the chest. It does hurt for him to take a deep breath. generalized Pain Score (Numeric/FACES): 10 - Related Data Allergies Allergy/AdvReac Type Severity Reaction Status Date / Time No Known Allergies Allergy Verified 10/10/20 16:21 Home Meds: Home Meds Dapagliflozin Propanediol [Farxiga] 5 mg PO DAILY 03/04/19 [History] Insulin Glarg,Human.Rec.Analog [Lantus] 24 unit INJECT BID 03/04/19 [History] Rosuvastatin [Crestor] 10 mg PO DAILY 03/04/19 [History] metFORMIN [Glucophage XR] 500 mg PO DAILY 03/04/19 [History] Multivitamin [Daily Multiple Vitamin] 1 tab PO DAILY 04/29/19 [History] Pantoprazole Sodium [Protonix] 40 mg PO DAILY #30 tablet. 04/30/19 [Rx] Acetaminophen/HYDROcodone [Brighton 325-5 MG] 1 tab PO Q6H PRN #20 tablet 10/10/20 [Rx] Past Medical History HEENT History: Reports: Impaired Vision Other HEENT History: wears eyeglasses. Top teeth pulled out. Cardiovascular History: Reports: High Cholesterol, PVD Other Cardiovascular History: stent to right leg Respiratory History: Reports: Pneumonia, Recurrent Genitourinary History: Reports: Diabetic Nephropathy Musculoskeletal History: Reports: Fracture Neurological History: Reports: Neuropathy, Diabetic Endocrine/Metabolic History: Reports: Diabetes, Type II - Infectious Disease History Infectious Disease History: Reports: Chicken Pox - Past Surgical History HEENT Surgical History: Reports: Tonsillectomy Other HEENT Surgeries/Procedures: shots in his eyes Cardiovascular Surgical History: Reports: Vascular Surgery Musculoskeletal Surgical History: Reports: ORIF, Other (See Below) Other Musculoskeletal Surgeries/Procedures:: jonatan to L) leg (femur) Social & Family History - Family History Family Medical History: No Pertinent Family History - Caffeine Use Caffeine Use: Reports: Soda - Living Situation & Occupation Living situation: Reports: , with Spouse 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 Denies: Sputum Cardiovascular: Reports: No Symptoms Endocrine: Reports: No Symptoms GI/Abdominal: Reports: No Symptoms : Reports: No Symptoms Musculoskeletal: Reports: No Symptoms Neurological: Reports: No Symptoms ED EXAM, GENERAL - Physical Exam Exam: See Below Exam Limited By: No Limitations General Appearance: Alert, Anxious Eye Exam: Bilateral Eye: Normal Inspection Ears: Normal External Exam, Normal Canal, Hearing Grossly Normal, Normal TMs Nose: Normal Inspection, Normal Mucosa, No Blood Throat/Mouth: Normal Inspection, Normal Lips, Normal Teeth, Normal Gums, Normal Oropharynx, Normal Voice, No Airway Compromise Head: Atraumatic, Normocephalic Neck: Normal Inspection, Supple, Non-Tender, Full Range of Motion. No: Lymphadenopathy (L), Lymphadenopathy (R) Respiratory/Chest: No Respiratory Distress, Lungs Clear, Normal Breath Sounds, Other (Has some chest wall discomfort with palpation on the lateral lower most chest avila bilaterally) Cardiovascular: Regular Rate, Rhythm, No Edema, No Murmur GI/Abdominal: Normal Bowel Sounds, Soft, Other (Epigastric discomfort mild with palpation no rigidity rebound or guarding) Back Exam: Normal Inspection. No: CVA Tenderness (L), CVA Tenderness (R) Extremities: Normal Inspection, Non-Tender, No Pedal Edema Neurological: Alert, Oriented, Normal Cognition #1 Interpretation EKG Date: 10/10/20 Rhythm: NSR [place]: Normal P-Wave: Present QRS: Other (Early transition) ST-T: Normal QT: Normal Comparison: No Change (No significant change from 2 days ago) EKG Interpretation Comments: Nondiagnostic EKG Course - Vital Signs Last Recorded V/S: Last Vital Signs Temp 36.9 C 10/10/20 16:20 Pulse 71 10/10/20 18:12 Resp 23 H 10/10/20 18:12 BP 128/81 10/10/20 18:12 Pulse Ox 98 10/10/20 18:12 - Orders/Labs/Meds Orders: Active Orders 24 hr Category Date Time Status Ang Chest [CT] Stat Exams 10/10/20 16:43 Stop Req EKG 12 Lead [EK] Stat Ther 10/10/20 17:02 Ordered Labs: Laboratory Tests 10/10/20 10/10/20 10/10/20 Range/Units 16:15 16:15 16:15 WBC 5.37 (4.23-9.07) K/mm3 RBC 5.34 (4.63-6.08) M/mm3 Hgb 16.1 (13.7-17.5) gm/dl Hct 46.3 (40.1-51.0) % MCV 86.7 D (79.0-92.2) fl MCH 30.1 (25.7-32.2) pg MCHC 34.8 (32.2-35.5) g/dl RDW Std Deviation 39.4 (35.1-43.9) fL Plt Count 174 (163-337) K/mm3 MPV 10.6 (9.4-12.3) fl Neut % (Auto) 43.4 (34.0-67.9) % Lymph % (Auto) 38.5 (21.8-53.1) % Cloud % (Auto) 14.9 H (5.3-12.2) % Eos % (Auto) 2.4 (0.8-7.0) Baso % (Auto) 0.6 (0.1-1.2) % Neut # (Auto) 2.33 (1.78-5.38) K/mm3 Lymph # (Auto) 2.07 (1.32-3.57) K/mm3 Cloud # (Auto) 0.80 (0.30-0.82) K/mm3 Eos # (Auto) 0.13 (0.04-0.54) K/mm3 Baso # (Auto) 0.03 (0.01-0.08) K/mm3 D-Dimer, Quantitative 0.36 (0.19-0.50) mg/L Sodium 131 L (136-145) mEq/L Potassium 4.3 (3.5-5.1) mEq/L Chloride 96 L (98-107) mEq/L Carbon Dioxide 23 (21-32) mEq/L Anion Gap 16.3 H (5-15) BUN 24 H (7-18) mg/dL Creatinine 1.2 (0.7-1.3) mg/dL Est Cr Clr Drug Dosing 64.26 mL/min Estimated GFR (MDRD) > 60 (>60) mL/min BUN/Creatinine Ratio 20.0 H (14-18) Glucose 362 H (74-106) mg/dL Calcium 9.7 (8.5-10.1) mg/dL Total Bilirubin 0.6 (0.2-1.0) mg/dL AST 23 (15-37) U/L ALT 35 (16-63) U/L Alkaline Phosphatase 97 (46-116) U/L Troponin I < 0.017 (0.00-0.056) ng/mL Total Protein 7.8 (6.4-8.2) g/dl Albumin 3.7 (3.4-5.0) g/dl Globulin 4.1 gm/dL Albumin/Globulin Ratio 0.9 L (1-2) Meds: Medications Discontinued Medications Generic Name Dose Route Start Last Admin Trade Name Mike PRN Reason Stop Dose Admin Morphine Sulfate 2 mg 10/10/20 16:49 10/10/20 17:01 Morphine 2 Mg/Ml Syringe IVPUSH 10/10/20 16:50 2 mg ONETIME ONE Administration Morphine Sulfate 2 mg 10/10/20 16:49 10/10/20 18:59 Morphine 2 Mg/Ml Syringe IVPUSH 10/10/20 16:50 2 mg ONETIME ONE Administration - Re-Assessments/Exams Free Text/Narrative Re-Assessment/Exam: 10/10/20 18:29 Resented to the emergency room initially he had no problems and room air and then as his anxiety and discomfort worsened he would have some problems. We got him to slow down his breathing and take deeper breaths and he did much better with this. But at times especially when he was ready to go to the sleep he would have some desaturations. With simple relaxation techniques patient's did better tachypnea and tachycardia resolved blood pressure improved. He was restarted on oxygen his pain was treated with 2 mg of morphine his anxiety ike nued to improve and he has done well has been on room air for quite a while now and is done quite well with this. I am concerned about him especially with his underlying diabetes however 2 days ago he received the bamlanivimab. He is doing well at this point I think he would do well with oral pain medication, and he would like to give this a try. Patient's chest x-ray today looks pretty good he may have some right-sided very subtle infiltrate starting to develop. Repeat D-dimer is still normal. Departure - Departure Time of Disposition: 18:38 Disposition: Home, Self-Care 01 Clinical Impression: COVID-19, Pneumonia due to COVID-19 virus - Discharge Information Prescriptions: Acetaminophen/HYDROcodone [B[place] 325-5 MG] 1 tab PO Q6H PRN #20 tablet PRN Reason: Pain Instructions: COVID-19 Referrals: Vinicio Barahona MD [Primary Care Provider] - Forms: ED Department Discharge Additional Instructions: Return to the emergency room with any questions problems or worsening symptoms. Do not hesitate to return here if you think you are having any worsening symptoms. Use the pain medication as needed. Take 1 every 6 hours as needed[address] Do not drive or return to work within 12 hours of using this medication. Spend as much time in the prone, on your belly, position as you can tolerate. Stay in home isolation for 7 days after your symptoms completely resolve and you are not taking any medication for the Covid symptoms. Sepsis Event Note (ED) - Focused Exam Vital Signs: Vital Signs Temp Pulse Resp BP Pulse Ox 10/10/20 18:12 71 23 H 128/81 98 10/10/20 16:20 36.9 C 73 40 H 212/79 H 100 - My Orders Last 24 Hours: My Active Orders 10/10/20 16:43 Ang Chest [CT] Stat 10/10/20 17:02 EKG 12 Lead [EK] Stat - Assessment/Plan Last 24 Hours: My Active Orders 10/10/20 16:43 Ang Chest [CT] Stat 10/10/20 17:02 EKG 12 Lead [EK] Stat
[2020-10-10] MEDS ORDERED: Morphine 2 MG/ML SYRINGE IVPUSH ONE ×2 (16:49)
== END 2020-10-10 19:00 | disposition home or self-care (01) ==
LOC: JD.ED 16:05
DX: U07.1 COVID-19 (principal); J12.82 Pneumonia due to coronavirus disease 2019; E11.40 Type 2 diabetes mellitus with diabetic neuropathy, unspecified; E78.00 Pure hypercholesterolemia, unspecified; Z79.4 Long term (current) use of insulin; Z79.899 Other long term (current) drug therapy
CPT/HCPCS: 36415; 80053; 84484; 85025; 85379; 93005; 96374; 96376; 99285; J2270; 93010; 99284

== ENCOUNTER 2021-02-09 17:35 | Emergency (ER) | payer BC ==
[2021-02-09] MEDS ORDERED: LORazepam 2 MG/ML SDV IVPUSH ONE (18:24)
--- NOTE | 2021-02-09 18:28 | EDM.PDOC ---
ED HPI GENERAL MEDICAL PROBLEM - General Chief Complaint: Neurological Problem Stated Complaint: [facility] Time Seen by Provider: 02/09/21 18:12 Source of Information: Reports: Patient, Family () History Limitations: Reports: No Limitations - History of Present Illness INITIAL COMMENTS - FREE TEXT/NARRATIVE: 55-year-old male presents to the ED per [facility] from his home here in [place]. 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 He was diagnosed with COVID-19 infection in September of this year. He presented with grand mal seizures on 2 or 3 occasions while in hospital. Apparently it took a period of time to identified the cause of his seizures and is unclear to me whether there was ever a definitive change identified on MRI of the brain. At any rate patient is followed by Dr. Conrad neurologist at [facility] in [place]. He was discharged on Keppra and has remained on 1500 mg twice daily since discharge from hospital and has had no further seizure activity. Of note he apparently was on Topamax or topiramate dosage unknown up until 2 weeks ago when he ran out of medication. There were no refills on the medication and they were not able to get it refilled per neurology services until review tomorrow in clinic. It is unclear if this was being used for a antiseizure medication but it is thought that this was the case according to the . Carlos Manuelight shortly after 1710 hrs. or thereabouts he developed recurrent seizure activity which was witnessed by his with recurrent blinking of his eyes and inability to respond to his 's verbal commands. She appreciated that his eyes were twitching repeatedly with the first seizure. This lasted approximately a minute to a minute and a half. Apparently had a short reprieve in between 3 separate seizures. During the second seizure he was up against the wall and apparently right leg gave out and caused him to slide down the wall to the floor. It is unclear if he was having any repetitive tonic-clonic movements of his right arm or leg at that time. The patient never lost consciousness. He never lost control of his bowel or bladder and he did not bite his tongue. In the ED, when I first seen him ,he was having recurrent blinking of his eyes with slight twitching of the right side of his face but no obvious tonic /clonic movement of his right arm or leg. He has not missed any doses of his medication and his make sure of this. No recent falls or injuries. Today when the seizure first came on he slid down a wall to the floor and did not land hard. In particular did not hit his head. He reports mild nausea without vomiting. He appreciates that he has right arm and right leg weakness at the time of presentation to the ED. He has a mild headache. Paramedics did not administer any medications but did start an IV. Of note the patient's med list indicates he takes lorazepam 0.5 mg every 6 hours as needed. It appears that he is still been using this medication without abrupt withdrawal that would precipitate benzodiazepine withdrawal. Onset: Today, Sudden Onset Date: 02/09/21 Onset Time: 17:10 Duration: Minutes:, Intermittent Location: Reports: Other (Recurrent blinking of his eyelids and slight twitching of the right side of his face and apparently recognized right arm and leg involvement with slight twitching at home with initial onset of seizure.) Quality: Reports: Other Severity: Mild Improves with: Reports: None Worsens with: Reports: None Context: Reports: Other (Spontaneous onset of seizure shortly after 5 PM ton ight.). Denies: Activity, Exercise, Lifting, Sick Contact, Trauma Associated Symptoms: Reports: Headaches, Malaise, Weakness. 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 04/30/19 [Rx] Albuterol Sulfate [Albuterol Sulfate HFA] 8.5 gm INH Q4H PRN 02/09/21 [History] Aspirin 81 mg PO DAILY 02/09/21 [History] Escitalopram [Lexapro] 10 mg PO DAILY 02/09/21 [History] Insulin Aspart [NovoLOG] 0 unit SQ WITHMEALSANDBED 02/09/21 [History] LORazepam [Ativan] 0.5 mg PO Q6H PRN 02/09/21 [History] levETIRAcetam [Keppra] 2,000 mg PO BID 02/09/21 [History] lisinopriL [Lisinopril] 5 mg PO DAILY 02/09/21 [History] Past Medical History HEENT History: Reports: Impaired Vision Other HEENT History: wears eyeglasses. Top teeth pulled out. 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 Has been on insulin for the last 21 years.) - Infectious Disease History Infectious Disease History: Reports: Chicken Pox Other Infectious Disease History: September 2019 - Past Surgical History HEENT Surgical History: Reports: Tonsillectomy Other HEENT Surgeries/Procedures: shots in his eyes Cardiovascular Surgical History: Reports: Vascular Surgery Musculoskeletal Surgical History: Reports: ORIF, Other (See Below) Other Musculoskeletal Surgeries/Procedures:: jonatan to L) leg (femur) Social & Family History - Family History Family Medical History: No Pertinent Family History - Tobacco Use Tobacco Use Status *Q: Never Tobacco User - Caffeine Use Caffeine Use: Reports: Soda - Recreational Drug Use Recreational Drug Use: No - Living Situation & Occupation Living situation: Reports: , with Spouse 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 Denies: Fever, Chills Respiratory: Reports: No Symptoms Cardiovascular: Denies: Chest Pain Endocrine: Reports: Fatigue, Other (Does have type 2 diabetes.) GI/Abdominal: Reports: Constipation (Occasional problems with constipation) : Reports: Frequency, Other (Nocturia x2) Musculoskeletal: Reports: Shoulder Pain, Back Pain Skin: Reports: No Symptoms Neurological: Reports: Headache (Headache today post seizure.), Seizure (Since diagnosis of meningoencephalitis in early December of this year felt to be post Covid related). Denies: Confusion, Dizziness Psychiatric: Reports: Anxiety Hematologic/Lymphatic: Reports: No Symptoms Immunologic: Reports: No Symptoms - Physical Exam Exam: See Below Exam Limited By: Other (Initial blood pressure was recorded at 225 110. It came down promptly to 165/88 and then subsequently to 148/80.) General Appearance: Alert, WD/WN, No Apparent Distress, Obese (Mild.), Other (Once I spoke to him after entering the room with his repetitive eye blinking the eye blinking went away and he could answer my questions appropriately. This suggested this may be pseudoseizure activity. Temperature is 36.9 with a heart rate of 90. Respiratory was 16 with O2 sats of 92 to 94% room) Eye Exam: Right Eye: Conjunctival Injection (Patient has a lateral subconjunctival hematoma adjacent to the cornea. This is from recent intraocular injections for diabetic retinopathy/macular degeneration), Bilateral Eye: Normal Fundi, Normal Inspection (No blepharal pallor or scleral icterus), PERRL (No gaze palsy. Pupils were equal and respond to light and accommodation) Ears: Normal TMs Throat/Mouth: Normal Inspection, Normal Lips, Normal Oropharynx, Other (No evidence of any tongue biting.) Head Exam: Atraumatic, Normocephalic, Other Neck: Normal Inspection, Supple (No outward signs of any head or facial trauma), Non-Tender, Full Range of Motion. No: Carotid Bruit, Lymphadenopathy (L), Lymphadenopathy (R) Respiratory/Chest: No Respiratory Distress, Lungs Clear, Normal Breath Sounds, No Accessory Muscle Use, Decreased Breath Sounds (Breath sounds are mildly diminished to the lower 20% lung liu bilaterally without adventitial sounds) Cardiovascular: Normal Peripheral Pulses, Regular Rate, Rhythm, No Edema, No Gallop, No Murmur, No Rub GI/Abdominal: Normal Bowel Sounds, Soft, Non-Tender, No Organomegaly, No Mass, Pelvis Stable, Other. No: Guarding, Rigid, Rebound (Mildly obese), Tender Neuro Exam (Abbreviated): Alert, Oriented, CN II-XII Intact, Normal Cognition, Sensory/Motor Deficit (Patient has weakness in his right lower extremity with difficulty lifting his leg off the gurney. I could lift it off the gurney and internally externally rotate his hip with no abnormalities identified. Right upper extremity had full range of motion.), Other (Negative Babinski sign). No: Normal Reflexes DTR: 0: Patella (R), 1+: Patella (L), Achilles (R), Achilles (L), 2+: Bicep (L), 3+: Bicep (R) Back Exam: Normal Inspection, Full Range of Motion, Other (Required assist to sit up on the gurney.). No: CVA Tenderness (L), CVA Tenderness (R) Extremities: Normal Inspection, Normal Range of Motion, Non-Tender, No Pedal Edema Psychiatric: Normal Affect, Normal Mood Skin Exam: Warm, Dry, Intact, Normal Color, No Rash Course - Vital Signs Last Recorded V/S: Last Vital Signs Temp 36.9 C 02/09/21 17:40 Pulse 92 02/09/21 18:15 Resp 32 H 02/09/21 18:15 BP 196/102 H 02/09/21 18:15 Pulse Ox 93 L 02/09/21 18:15 - Orders/Labs/Meds Labs: Laboratory Tests 02/09/21 02/09/21 02/09/21 Range/Units 18:21 18:21 18:21 WBC 8.04 (4.23-9.07) K/mm3 RBC 4.63 (4.63-6.08) M/mm3 Hgb 14.5 D (13.7-17.5) gm/dl Hct 42.7 (40.1-51.0) % MCV 92.2 D (79.0-92.2) fl MCH 31.3 (25.7-32.2) pg MCHC 34.0 (32.2-35.5) g/dl RDW Std Deviation 46.5 H (35.1-43.9) fL Plt Count 241 (163-337) K/mm3 MPV 9.7 (9.4-12.3) fl Neut % (Auto) 58.7 (34.0-67.9) % Lymph % (Auto) 26.0 (21.8-53.1) % [place] % (Auto) 8.7 (5.3-12.2) % Eos % (Auto) 5.7 (0.8-7.0) Baso % (Auto) 0.7 (0.1-1.2) % Neut # (Auto) 4.71 (1.78-5.38) K/mm3 Lymph # (Auto) 2.09 (1.32-3.57) K/mm3 [place] # (Auto) 0.70 (0.30-0.82) K/mm3 Eos # (Auto) 0.46 (0.04-0.54) K/mm3 Baso # (Auto) 0.06 (0.01-0.08) K/mm3 Sodium 141 D (136-145) mEq/L Potassium 4.1 (3.5-5.1) mEq/L Chloride 104 (98-107) mEq/L Carbon Dioxide 25 (21-32) mEq/L Anion Gap 16.1 H (5-15) BUN 22 H (7-18) mg/dL Creatinine 1.0 (0.7-1.3) mg/dL Est Cr Clr Drug Dosing 63.70 mL/min Estimated GFR (MDRD) > 60 (>60) mL/min BUN/Creatinine Ratio 22.0 H (14-18) Glucose 308 H (70-99) mg/dL Lactic Acid (0.4-2.0) mmol/L Calcium 9.1 (8.5-10.1) mg/dL Total Bilirubin 0.2 (0.2-1.0) mg/dL AST 18 (15-37) U/L ALT 35 (16-63) U/L Alkaline Phosphatase 103 (46-116) U/L C-Reactive Protein <0.2 (<1.0) mg/dL Total Protein 7.0 (6.4-8.2) g/dl Albumin 3.7 (3.4-5.0) g/dl Globulin 3.3 gm/dL Albumin/Globulin Ratio 1.1 (1-2) TSH 3rd Generation 2.000 (0.358-3.74) uIU/mL 02/09/21 Range/Units 18:44 WBC (4.23-9.07) K/mm3 RBC (4.63-6.08) M/mm3 Hgb (13.7-17.5) gm/dl Hct (40.1-51.0) % MCV (79.0-92.2) fl MCH (25.7-32.2) pg MCHC (32.2-35.5) g/dl RDW Std Deviation (35.1-43.9) fL Plt Count (163-337) K/mm3 MPV (9.4-12.3) fl Neut % (Auto) (34.0-67.9) % Lymph % (Auto) (21.8-53.1) % [place] % (Auto) (5.3-12.2) % Eos % (Auto) (0.8-7.0) Baso % (Auto) (0.1-1.2) % Neut # (Auto) (1.78-5.38) K/mm3 Lymph # (Auto) (1.32-3.57) K/mm3 [place] # (Auto) (0.30-0.82) K/mm3 Eos # (Auto) (0.04-0.54) K/mm3 Baso # (Auto) (0.01-0.08) K/mm3 Sodium (136-145) mEq/L Potassium (3.5-5.1) mEq/L Chloride (98-107) mEq/L Carbon Dioxide (21-32) mEq/L Anion Gap (5-15) BUN (7-18) mg/dL Creatinine (0.7-1.3) mg/dL Est Cr Clr Drug Dosing mL/min Estimated GFR (MDRD) (>60) mL/min BUN/Creatinine Ratio (14-18) Glucose (70-99) mg/dL Lactic Acid 3.2 H* (0.4-2.0) mmol/L Calcium (8.5-10.1) mg/dL Total Bilirubin (0.2-1.0) mg/dL AST (15-37) U/L ALT (16-63) U/L Alkaline Phosphatase (46-116) U/L C-Reactive Protein (<1.0) mg/dL Total Protein (6.4-8.2) g/dl Albumin (3.4-5.0) g/dl Globulin gm/dL Albumin/Globulin Ratio (1-2) TSH 3rd Generation (0.358-3.74) uIU/mL Meds: Medications Discontinued Medications Generic Name Dose Route Start Last Admin Trade Name Mike PRN Reason Stop Dose Admin Lorazepam 1 mg 02/09/21 18:24 02/09/21 18:58 Lorazepam 2 Mg/Ml Sdv IVPUSH 02/09/21 18:25 1 mg ONETIME ONE Administration - Radiology Interpretation Free Text/Narrative:: 55-year-old male presents to the ED per [facility] [facility] after apparently suffering 3 separate seizures a few minutes apart shortly after 1700 hrs. today. His provides most of his history. He had COVID-19 illness in early to mid September 2020. He did come into the ED and did receive monoclonal antibody therapy. However about a month later he started to decline and have worse problems which were felt to be related to COVID-19 illness. In early December he was admitted to [facility] in [place] due to grand mal seizure occurrences. 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 He has done well post discharge from the hospital and is maintained on Keppra 1500 mg twice daily and up until 2 weeks ago was also on Topamax dosage unknown daily. He does use lorazepam 0.5 mg once daily at bedtime to help sleep. He returned to work about 10 days ago and is finding it very stressful. He feels he is sleeping adequately but is quite fatigued. describes that initially at night he developed blinking of his eyes repeatedly and staring off into space and would not communicate verbally with her. She did not appreciate any tonic-clonic activity of any of his other extremities. This seizure lasted approximately 90 seconds. Within another minute or so he developed a second seizure with repetitive movement of his eyelids slight twitching of his right face and then his right leg seemed to give out and he slid down the wall to the floor. His did not apparently identify any obvious tonic-clonic movement of his right arm or leg. On examination here he had repetitive opening and closing of his eyes with repetitive blinking activity but as soon as I started to converse with him the blinking stopped suggesting pseudoseizure activity. However during the the rest of my examination he would had hyper active reflexes in his right arm and absent reflexes in his right leg and he was unable to raise his right leg off the gurney. His left side was normal. Babinski's were both downgoing. Plan patient will have IV normal saline 150 mils an hour. He is a type II diabetic controlled with insulin. Blood sugar be tested at the bedside. Routine labs ordered including a lactic acid. He will have CT of the head performed due to concern for possible focal seizure activity involving only the right side of his body. - Re-Assessments/Exams Free Text/Narrative Re-Assessment/Exam: 02/09/21 19:10: CT scan of the brain reveals the ventricles along with the basal cisterns and sulci over the convexities to be minimally prominent. No abnormal parenchymal densities are seen. No evidence of intracranial hemorrhage is seen. No midline shift or mass-effect is seen. Bone window settings were reviewed. Visualized mastoid sinuses and paranasal sinuses show nothing acute. No acute calvarial abnormality is seen. 02/09/21 19:21 White count is normal at 8.04. Hemoglobin is 14.5 with an with hematocrit of 42.7. Platelet count is 241,000 02/09/21 19:49 Chemistry is now available. Sodium is normal at 141 with a potassium of 4.1. Chloride is 104 with a bicarb of 25. Anion gap is 16.1. BUN was 22 with a creatinine of 1.0 and a GFR greater than 60. BUN/creatinine ratio is 22.0. Glucose was elevated at 308. Lactic acid was elevated at 3.2 compatible with having a recent seizure. Calcium is 9.1. Liver function is normal. C-reactive protein was less than 0.2 total protein 7.0 with an albumin fraction of 3.7. TSH is normal at 2.0. Patient has other labs listed in his [facility] medical chart which I reviewed and cortisol levels done recently were normal as well. 02/09/21 20:02 patient appears to have recovered substantially from his seizure. He is alert oriented answers all questions appropriately. He is now able to lift his right leg off the gurney fairly easily. This suggest that initial right arm and leg weakness was in fact due to focal seizure involving right hemiextremity. I am going to get him up walking in the hallway and see how he ambulates. 02/09/21 20:09 We got the patient up walking with the aid of a walker but he is still toe dragging and has weakness in his right ankle and foot. This is a marked improvement compared to my initial evaluation when he could not lift his leg off the gurney at all and could not resist forceful plantarflexion of his ankle. Plan will be to retest him in 30 minutes or so. 02/09/21 20:41 On retesting he was able to get up off the bed on his own volition which she struggled with initially. I walked him and he did much better in terms no more toe dragging on the right side. He could pivot and turn without issue. He will be discharged to home as they have an appointment with neurologist Dr. Conrad tomorrow morning at 1030 hrs. mild standard time. Departure - Departure Time of Disposition: 20:42 Disposition: Home, Self-Care 01 Condition: Fair Clinical Impression: Breakthrough seizure - Discharge Information *PRESCRIPTION DRUG MONITORING PROGRAM REVIEWED*: Not Applicable *COPY OF PRESCRIPTION DRUG MONITORING REPORT IN PATIENT JEISON: Not Applicable Instructions: Epilepsy, [id number] Referrals: Vinicio Barahona MD [Primary Care Provider] - Forms: ED Department Discharge Additional Instructions: Evaluation in the emergency room today in regards to breakthrough seizures that occurred shortly after 1700 hrs. today. 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 You suffered grand mal seizures at the time of admission to the hospital. You have been treated with Keppra 1500 mg twice daily as an outpatient as well as Topamax dosage unknown up until 2 weeks ago. You have continued the Keppra but have been unable to fill a dose of Topamax. In the emergency room you were having repetitive opening and closing of your eyes with slight twitching of your right hemiface at the time I seen you. You could speak and answer my questions normally. You identified that your right arm and leg were weak particularly the right leg. This persiste d for the next 3 hours and gradually improved function and strength suggesting that the right leg was affected more so by a seizure than your face or right arm. We call this being post ictal. CT of the brain done tonight did not reveal any abnormalities. Lab test revealed mild elevation of your lactic acid compatible with having had seizure activity. You were treated with Ativan 1 mg IV in the emergency department prior to going to the CT suite. No changes made to medications at this time as you are going to see your neurologist Dr. Conrad tomorrow and he will determine if further antiseizure medication is required or return to Topamax daily. Take your dosage of Keppra 1500 mg tonight as per usual. Sepsis Event Note (ED) - Evaluation Sepsis Screening Result: No Definite Risk - Focused Exam Vital Signs: Vital Signs Temp Pulse Resp BP Pulse Ox 02/09/21 18:15 92 32 H 196/102 H 93 L 02/09/21 17:40 36.9 C 90 16 225/110 H 92 L
--- NOTE | 2021-02-09 19:18 | CT ---
Head CT Technique: Multiple axial sections through the brain were obtained. Intravenous contrast was not utilized. Reconstructed coronal and sagittal images were obtained. Comparison: Prior head CT study of 03/02/19. Findings: Ventricles along with basal cisterns and sulci over the convexities are minimally prominent. No abnormal parenchymal densities are seen. No evidence of intracranial hemorrhage is seen. No midline shift or mass-effect is seen. Bone window settings were reviewed. Visualized mastoid sinuses and paranasal sinuses show nothing acute. No acute calvarial abnormality is seen. Impression: 1. Nothing acute is seen on noncontrast head CT study. 2. No change is seen from previous head CT exam. Diagnostic code #1
== END 2021-02-09 21:05 | disposition home or self-care (01) ==
LOC: JD.ED 17:35
DX: G40.909 Epilepsy, unspecified, not intractable, without status epilepticus (principal); E78.00 Pure hypercholesterolemia, unspecified; E11.9 Type 2 diabetes mellitus without complications; Z88.8 Allergy status to other drugs, medicaments and biological substances; Z79.4 Long term (current) use of insulin; Z79.899 Other long term (current) drug therapy
CPT/HCPCS: 36415; 70450; 80053; 83605; 84443; 85025; 86140; 96374; 99284; J2060

== ENCOUNTER 2024-01-08 21:42 | Emergency (ER) | payer BC, MEDICARE ==
[2024-01-08 22:12] LABS: BASOPHILS ABSOLUTE AUTO 0.1 K/mm3 (0.0-0.2); BASOPHILS PERCENT AUTO 0.5 % (0.0-1.0); EOSINOPHILS ABSOLUTE AUTO 0.5 K/mm3 (0.0-0.4); EOSINOPHILS PERCENT AUTO 3.6 % (0.0-6.0); HEMATOCRIT 40.9 % (42.0-52.0); HEMOGLOBIN 13.7 gm/dl (14.0-18.0); IMMATURE GRAN ABSOLUTE AUTO 0.05 K/mm3 (0.00-0.05); IMMATURE GRAN PERCENT AUTO 0.4 % (0.0-0.4); LYMPHOCYTES ABSOLUTE AUTO 2.7 K/mm3 (1.0-4.8); LYMPHOCYTES PERCENT AUTO 19.4 % (24.0-44.0); MEAN CORPUSCULAR HEMOGLOBIN 29.5 pg (28.0-32.0); MEAN CORPUSCULAR HGB CONC 33.5 g/dl (32.0-36.0); MEAN PLATELET VOLUME 9.8 fl (9.4-12.4); MONOCYTES ABSOLUTE AUTO 1.2 K/mm3 (0.0-0.8); MONOCYTES PERCENT AUTO 8.5 % (0.0-8.0); NEUTROPHILS ABSOLUTE AUTO 9.5 K/mm3 (1.8-7.7); NEUTROPHILS PERCENT AUTO 67.6 % (41.0-71.0); PLATELET COUNT,PLT 287 K/mm3 (150-400); RED BLOOD CELL COUNT 4.65 M/mm3 (4.52-5.90); WHITE BLOOD CELL COUNT,WBC 14.04 K/mm3 (3.9-11.3)
[2024-01-08] MEDS: Diltiazem 25 MG/5 ML SDV IVPUSH ONE (22:14)
[2024-01-08] MEDS: Diltiazem 25 MG/5 ML SDV ONE (22:15)
[2024-01-08] MEDS ORDERED: Sodium Chloride 0.9% 10 ML Syringe FLUSH PRN (22:18)
[2024-01-08 22:26] LABS: A/G RATIO 0.9 (1-2); ALANINE AMINOTRANSFERASE,ALT 30 U/L (16-63); ALBUMIN 3.4 g/dl (3.4-5.0); ALKALINE PHOSPHATASE 133 U/L (46-116); ANION GAP 13.1 (5-15); ASPARTATE AMNIOTRANSFERASE,AST 78 U/L (15-37); BILIRUBIN TOTAL 0.3 mg/dL (0.2-1.0); BLOOD UREA NITROGEN,BUN 31 mg/dL (7-18); BUN/CREATININE RATIO 20.7 (14-18); CALCIUM 9.4 mg/dL (8.5-10.1); CARBON DIOXIDE,CO2 30 mEq/L (21-32); CHLORIDE,CL 100 mEq/L (98-107); CREATININE 1.5 mg/dL (0.7-1.3); ESTIMATED GFR 53 mL/min (>60); GLUCOSE RANDOM 270 mg/dL (70-99); POTASSIUM,K 4.1 mEq/L (3.5-5.1); SODIUM,NA 139 mEq/L (136-145)
[2024-01-08 22:31] LABS: TROPONIN I HIGH SENSITIVITY 6181 pg/mL (<=76)
[2024-01-08] MEDS: Aspirin 81 MG Tab.Chew PO ONE (22:36)
[2024-01-08 22:43] LABS: LACTIC ACID 1.7 mmol/L (0.4-2.0)
[2024-01-08] MEDS: Aspirin 81 MG Tab.EC ONE (22:43)
[2024-01-08 23:07] LABS: MAGNESIUM 1.6 mg/dL (1.8-2.4); TSH 4.849 uIU/mL (0.358-3.74)
[2024-01-08 23:10] LABS: T4 FREE 0.92 ng/dL (0.76-1.46)
[2024-01-08 23:12] LABS: INR 0.96; PROTHROMBIN TIME 10.2 SECONDS (9.7-12.0)
[2024-01-08 23:13] LABS: PTT,PARTIAL THROMBOPLSTIN TIME 27.6 SECONDS (21.7-31.4)
[2024-01-08] MEDS: Metoprolol Tartrate 5 MG/5 ML SDV IVPUSH ONE (23:25)
[2024-01-08] MEDS: Heparin Sodium 5,000 Units/ML Vial IVPUSH ONE ×2 (23:26→23:32)
[2024-01-08] MEDS: Heparin Sodium/D5W 25,000 UNITS/500 ML BAG IV SCH (23:26)
[2024-01-08] MEDS: fentaNYL 100 MCG/2 ML SDV IVPUSH ONE (23:31)
[2024-01-09 00:08] LABS: APPEARANCE,URINE CLEAR (Clear); BILIRUBIN,URINE NEGATIVE (Negative); COLOR,URINE YELLOW (Yellow); GLUCOSE,URINE 2+ (Negative); KETONES,URINE NEGATIVE (Negative); LEUKOCYTE ESTERASE,URINE NEGATIVE (Negative); NITRITE,URINE NEGATIVE (Negative); OCCULT BLOOD,URINE 1+ (Negative); PROTEIN,URINE 3+ (Negative); UROBILINOGEN,URINE 0.2 (0.2-1.0)
[2024-01-09 00:27] LABS: BACTERIA,URINE FEW /hpf (FEW); EPITHELIAL CELLS,URINE 0-5 /hpf (0-5); RBC,URINE 0-5 /hpf (0-5); WBC,URINE 0-5 /hpf (0-5)
[2024-01-09 00:28] LABS: MUCUS,URINE RARE /hpf (FEW)
[2024-01-09 00:54] LABS: CORONAVIRUS COVID-19 NAA NEGATIVE (NEGATIVE); INFLUENZA A NAA NEGATIVE (NEGATIVE); RESPIRATORY SYNCYTIAL VIR NAA NEGATIVE (NEGATIVE)
== END 2024-01-09 01:10 ==
LOC: JD.ED 21:42
DX: I24.9 Acute ischemic heart disease, unspecified (principal); I48.91 Unspecified atrial fibrillation; R07.9 Chest pain, unspecified; E78.00 Pure hypercholesterolemia, unspecified; E11.21 Type 2 diabetes mellitus with diabetic nephropathy; E11.40 Type 2 diabetes mellitus with diabetic neuropathy, unspecified; Z79.82 Long term (current) use of aspirin; Z79.4 Long term (current) use of insulin; Z79.84 Long term (current) use of oral hypoglycemic drugs; Z79.899 Other long term (current) drug therapy; Z88.8 Allergy status to other drugs, medicaments and biological substances
CPT/HCPCS: 0241U; 36415; 71045; 80053; 81001; 83605; 83690; 83735; 83880; 84439; 84443; 84484; 85025; 85379; 85610; 85730; 87040; 93005; 96365; 96366; 96375; 99285; A9270; J1644; J3490; 93010